=== PATIENT | female | born 2000 | race Caucasian/White ===

== ENCOUNTER 2024-05-02 14:05 | Outpatient (CLI) | payer OTHER, SELFPAY | END 2024-05-02 14:06 | disposition home or self-care (01) | PROVIDERS: PCP Pediatrics; Visit Provider Family Medicine | DX: R11.0 Nausea (principal) | CPT/HCPCS: 80053; 83690 ==

== ENCOUNTER 2025-03-31 13:13 | Outpatient (CLI) | payer BC, SELFPAY | END 2025-03-31 13:14 | disposition home or self-care (01) | PROVIDERS: PCP Nurse Practitioner Family; Visit Provider Nurse Practitioner Family | DX: R79.0 Abnormal level of blood mineral (principal); G25.81 Restless legs syndrome | CPT/HCPCS: 82728; 83540; 85025 ==

== ENCOUNTER 2025-07-27 15:28 | Outpatient (CLI) | payer OTHER, SELFPAY | END 2025-07-27 15:29 | disposition home or self-care (01) | LOC: KYNREF 15:30 | PROVIDERS: PCP Nurse Practitioner Family; Visit Provider Nurse Practitioner Family | DX: Z11.3 Encounter for screening for infections with a predominantly sexual mode of transmission (principal) | CPT/HCPCS: 82728; 86694; 87252 ==